=== PATIENT | male | born 1995 | race Caucasian/White ===

== ENCOUNTER 2018-05-26 11:39 | Emergency (ER) | payer OTHER ==
[~2018-05-26] VITALS: Ht 193 cm; Wt 71.0 kg
[2018-05-26 11:45] VITALS: BP 122/82
[2018-05-26] MEDS ORDERED: IBUP-2070 PO (11:47)
[2018-05-26] MEDS ORDERED: AMOX250T PO (11:47)
[2018-05-26] MEDS ORDERED: AMOX500C2 PO (12:11)
[2018-05-26] MEDS: KETOROLAC TROMETHAMINE 10 MG TABLET PO ONE ×2 (12:19→12:21)
== END 2018-05-26 12:30 | disposition home or self-care (01) ==
LOC: EMS 11:40
DX: S20.212A Contusion of left front wall of thorax, initial encounter (principal); M94.0 Chondrocostal junction syndrome [Tietze]; Z79.899 Other long term (current) drug therapy; W18.39XA Other fall on same level, initial encounter; Y93.89 Activity, other specified; Y92.89 Other specified places as the place of occurrence of the external cause; Y99.8 Other external cause status

== ENCOUNTER 2021-05-14 10:07 | Emergency (ER) | payer OTHER ==
[~2021-05-14] VITALS: Ht 193 cm; Wt 81.0 kg
[~2021-05-14 10:07] MED LIST: AMOX500C2 PO; IBUP-2070 PO
[2021-05-14] MEDS ORDERED: IBUPROFEN 600 MG TABLET PO ONE (12:15)
[2021-05-14] MEDS ORDERED: BACITRACIN 0.9 GM PACKET OINTMENT TP ONE (12:15)
[2021-05-14 12:32] VITALS: BP 122/65
== END 2021-05-14 13:55 | disposition home or self-care (01) ==
LOC: EMS 10:10
DX: S70.01XA Contusion of right hip, initial encounter (principal); S90.512A Abrasion, left ankle, initial encounter; Z79.899 Other long term (current) drug therapy; V18.4XXA Pedal cycle driver injured in noncollision transport accident in traffic accident, initial encounter; Y93.89 Activity, other specified; Y92.89 Other specified places as the place of occurrence of the external cause; Y99.8 Other external cause status
CPT/HCPCS: 73502; 99284

== ENCOUNTER → 2023-07-14 | Emergency (ER) | payer OTHER ==
[~2023-07-14] VITALS: Ht 193 cm; Wt 97.7 kg
[~2023-07-14] MED LIST changes: +IBUP-1492 PO; -IBUP-2070 PO
[2023-07-14 17:36] VITALS: TEMP 98.2
[2023-07-14] MEDS: LIDOCAINE 5% TRANSDERMAL PATCH TD ONE (19:44)
[2023-07-14 21:01] VITALS: BP 141/69; PULSE 88; RESP 18
== END | disposition still patient (30) ==
LOC: EMS 17:24
DX: M54.50 Low back pain, unspecified (principal)
CPT/HCPCS: 72040; 72100; 99284; Z7502; Z7610